=== PATIENT | female | born 1990 | race Caucasian/White ===

== ENCOUNTER 2016-10-13 10:51 | Emergency (ER) | payer MEDICAID ==
[2016-10-13 12:25] LABS: CALCIUM 8.8 mg/dL (8.5-10.1); CARBON DIOXIDE 21.4 mmol/L (21-32); CHLORIDE SERUM 99 mmol/L (98-107); CREATININE SERUM 0.8 mg/dL (0.6-1.0); GFR1 > 60 mL/min; GLUCOSE SERUM 90 mg/dL (74-106); POTASSIUM SERUM 3.1 mmol/L (3.5-5.1); SODIUM SERUM 133 mmol/L (136-145)
[2016-10-13 12:30] LABS: ALBUMIN 3.4 g/dL (3.4-5.0); ALKALINE PHOSPHATASE 69 U/L (46-116); ALT/SGPT 24 U/L (14-59); AST/SGOT 15 U/L (15-37); BILIRUBIN TOTAL 0.4 mg/dL (0.20-1.00); TOTAL PROTEIN, SERUM 7.9 g/dL (6.4-8.2)
[2016-10-13 12:45] LABS: PLATELET COUNT 271 x10^3mcL (130-400); RED CELL DISTRIBUTION WIDTH 13.1 % (11.5-14.5)
[2016-10-13 13:12] LABS: BAND NEUTROPHIL 2 % (0-10); BASOPHIL 0 % (0-2); MONOCYTE 5 % (0-7); SEGMENTED NEUTROPHILS 87 % (37-75)
[2016-10-13 13:13] LABS: PLATELET MORPHOLOGY PLATELETS NORMAL
[2016-10-13 13:21] LABS: microscopic required? YES; urine erythrocyte 1+ (NEGATIVE)
[2016-10-13 14:39] VITALS: BP 109/71
== END 2016-10-13 14:39 | disposition home or self-care (01) ==
LOC: ED 10:51
PROVIDERS: Emergency Medicine
DX: O23.01 Infections of kidney in pregnancy, first trimester (principal); O21.9 Vomiting of pregnancy, unspecified; F12.90 Cannabis use, unspecified, uncomplicated; Z3A.12 12 weeks gestation of pregnancy
CPT/HCPCS: 83880; J0696; J2765; J3490; J7030